=== PATIENT | male | born 1960 | race Caucasian/White ===

== ENCOUNTER → 2022-01-08 | Day surgery (SDC) | payer OTHER ==
[~2022-01-08] VITALS: Ht 182.9 cm; Wt 81.6 kg
[~2022-01-08] MED LIST: FLOMAX0.4 MG PO; LISINOPRIL-HCT1 EAC1 PO; NEXIUM40 MG PO; PRILOSEC20 MG PO; SYNTHROID75 MCG PO; TRAZODONE HCL50 MG PO
[2022-01-08 09:00] LABS: HCT 46.8 % (42.0-52.0); HGB 15.4 g/dl (13.2-18.0); MCH 30.2 pg (25.0-31.0); MCHC 32.9 g/dL (32.0-36.0); MCV 91.8 fL (78.0-100.0); MPV 9.4 fL (6.0-9.5); RBC 5.1 M/uL (4.70-6.00); WBC 9.9 K/uL (4.0-10.5)
[2022-01-08 09:05] LABS: ALBUMIN 3.9 g/dL (3.4-5.0); BILIRUBIN - TOTAL 0.5 mg/dL (0.2-1.0); BUN/CREAT RATIO (CALC) 18.9 RATIO; CREATININE 0.9 mg/dL (0.67-1.17); GLOBULIN (CALCULATION) 4.1 g/dL; POTASSIUM 3.1 mmol/L (3.5-5.1)
== END | disposition home or self-care (01) ==
LOC: FAS 01-05 11:00
PROVIDERS: Surgery
DX: Z12.11 Encounter for screening for malignant neoplasm of colon (principal); Z86.010 Personal history of colon polyps; E03.9 Hypothyroidism, unspecified; K57.30 Diverticulosis of large intestine without perforation or abscess without bleeding; F17.210 Nicotine dependence, cigarettes, uncomplicated; I10 Essential (primary) hypertension
CPT/HCPCS: 36415; 80053; J2704; J7120